=== PATIENT | male | born 1955 | race Caucasian/White ===

== ENCOUNTER 2019-06-26 06:39 | Day surgery (SDC) | payer MEDICARE, BC, SELFPAY ==
[2019-06-24 13:40] VITALS: BMI 26.4
--- NOTE | 2019-06-24 15:08 | RAD_ITS ---
STUDY: X-RAY CHEST REASON FOR EXAM: Male, 64 years old. Chest discomfort and shortness of breath upon exertion. TECHNIQUE: PA and lateral views of the chest. COMPARISON: None. FINDINGS: Component of COPD. There is no demonstrated pleural abnormality. Normal size heart. Normal mediastinum and isabella. Normal visualized pulmonary arteries. Normal visualized aortic arch and descending thoracic aorta. There are diffuse degenerative changes of the visualized thoracic spine. Normal visualized ribs, clavicles, and shoulders. There is no demonstrated abnormality of the visualized soft tissue structures of the upper abdomen. RAD/Chest PA and Lateral IMPRESSION: Hyperinflation likely post obstruction. No pulmonary edema, congestive heart failure or confluent pneumonia. Electronically Signed: Regine Brannon MD at 6:32 EDT , Service support ,
[2019-06-24 16:29] LABS: Hematocrit 44.1 % (40-54); Hemoglobin 14.9 g/dL (13.0-16.5); Mean Corp Hgb Conc 33.8 g/dL (32-36); Mean Corpuscular Hgb 30.2 pg (27.0-32.0); Mean Corpuscular Volume 89.3 fL (80-94); Mean Platelet Vol. 10.1 fl (6.2-12.0); Platelet Count 251 K/mm3 (150-450); RBC Distribution Width CV 12.4 % (11.6-14.6); RBC Distribution Width SD 40.6 fl (35.1-43.9); Red Blood Count 4.94 M/mm3 (4.6-6.2); White Blood Count 8.7 K/mm3 (4.4-11.0)
[2019-06-24 16:39] LABS: Prothrombin Time (Protime)PT. 13.4 SECONDS (11.7-14.9)
[2019-06-24 16:40] LABS: Partial Thromboplast Time 27.4 Seconds (24.1-36.2)
[2019-06-24 16:50] LABS: Anion Gap 7 (5-15); BUN 24 mg/dL (7-18); BUN/Creat Ratio 23.5 RATIO (10-20); Calcium,Total 8.6 mg/dL (8.5-10.1); Chloride 110 mmol/L (98-107); Creatinine, Serum 1.02 mg/dL (0.70-1.30); EST Glomerular Filtration Rate 78 mL/min (>60); Est Glom Filt Rate - Afr Amer 94 mL/min (>60); Glucose 88 mg/dL (74-106); Potassium 4.1 mmol/L (3.5-5.1); Sodium Level 144 mmol/L (136-145)
[2019-06-26] VITALS (26 sets, daily range): BP systolic 129–158; BP diastolic 73–87; PULSE 46–83; RESP 12–22; TEMP 36.6–36.8; O2SAT 98–100; BMI 26.2
[2019-06-26 08:46] LABS: ACT Activated Clotting Time 169 sec (74-137)
--- NOTE | 2019-06-26 08:54 | CL.I_ITS ---
Patient Name: SALOME CALDWELL Study Date: 06/26/2019 Performing: Chandler Mitchell MD Ht: 70.07 inches 178 cm : 1955 Wt: 182.98 lbs 83 kg Age: 64 Gender: male BSA: 2.01 PROCEDURE(S) PERFORMED HV40-BIS/COR/LV WX40-EPW W OR WO PTCA, SINGLE CORONARY ARTERY CLINICAL PROFILE AND CO-MORBIDITIES Indications: New Onset Angina <= 2 months, Worsening Angina, Suspected CAD Heart Failure: None Stress/Imaging Date: 06/17/2019 Angina Classification Anginal Classification w/in 2 Weeks: CCS III CAD Presentations: Unstable angina. Comorbidities/Risk Factors: Hypertension Dyslipidemia Family History of Premature CAD CONCLUSIONS Normal LV size, wall motion,and systolic function Perserved Left Ventricular systolic function with normal EDP Single vessel CAD of the RCA Normal Left Ventricular End Diastolic Pressure Successful PTCA/MACKENZIE proximal RCA with a 4.0 x 20 Promus Synergy, post dilated with a 4.0 x 8 NC Ballo on at 12-14 ti; 85%-->0%, no dissection. RECOMMENDATIONS Highly recommend quitting all tobacco products Follow up with primary socket welder helper Risk factor modification ASA Indefinitley Plavix for at least 12 months Routine post interventional care Refer for Outpatient Cardiac Rehab Manual sheath removal per protocol Follow up with Dr. Mitchell Manual sheath removal as pt is too thin for Mynx closure. DESCRIPTION OF PROCEDURE The patient arrived to the procedure lab. The risks and benefits of the procedure as well as a full d escription of our services here and lack of surgical backup were fully explained to the patient and/o r their significant other prior to the catheterization. The Timeout was completed, verifying the zuri ect patient and procedure. The patient's procedural site was prepped and draped in the usual fashion. Local anesthetic was given subcutaneously to right groin region with Lidocaine 2%. Using a modified Seldinger technique, arterial access was obtained via the right femoral artery, a 4Fr sheath was inse rted. Left Coronary Artery selective angiography was performed in multiple views using a 4 Fr. JL5 c atheter. Right Coronary Artery selective angiography was then performed in multiple views using a 4 F r. 3DRC catheter. Left Ventriculography was performed in SPICER projection using a 4 Fr. Pigtail cathete r. LV to AO pullback pressures were then recordedThe images were reviewed and options discussed. A decision was then made to proceed with an Intervention, IVUS or other adjunct procedure. Arterial sheath was exchanged for a 6 Fr Sheath. HS 2 Guide catheter was inserted and engaged int o the RCA. BMW Guide wire was advanced to the rPDA. 2 x 12 Emerge Balloon catheter was inserted. Ball oon catheter was advanced across lesion in the right coronary,prox. Angiogram performed pre balloon d ilatation. PTCA balloon inflated at 10 atms for 10 secs. Angiogram performed post balloon dilatation. 4.0 x 20 Synergy Drug Eluting stent was advanced across the lesion in the right coronary, proximal. Angiogram performed pre stent deployment. Angiogram performed post stent deployment. 4.0 x 8 NC Emerg e Balloon catheter was inserted post stent. Angiogram performed post balloon dilatation. The arteri al sheath was pulled and manual compression applied until hemostasis is achieved. CORONARY ANGIOGRAPHY DOMINANCE: Right Dominant LEFT HEART ASSESSMENT Left Ventricular Ejection Fraction: by LV Gram 60. % Normal Left Ventricular systolic function LVEDP: 11 mmHg Normal LV wall motion LEFT MAIN: Angiographically normal LEFT ANTERIOR DESCENDING ARTERY: MID LAD: Mild luminal irregularities less than 30% DIAGONAL 1: Proximal - Mild luminal irregularities less than 30% CIRCUMFLEX ARTERY: Angiographically normal RIGHT CORONARY ARTERY: PROX RCA: 85 % Stenosis RT PDA: Proximal - Angiographically normal INTERVENTION INFORMATION LESION SITE: RCA (Proximal) Lesion Complexity: High/C, lesion at bifurcation: No, thrombus present: No, lesion length: 20 mm, cul prit lesion: Yes Pre Stenosis: 85 % Pre intervention FELIPA flow: 3 PROCEDURE: Drug Eluting Stent with pre and post dilatation Post Stenosis: 0 % Post intervention FELIPA flow: 3 Lesion Devices: Crystalsoltronic 6 Fr HSII 100cm Guide Catheter Anaya .014 BMW Holmes Straight 190cm Sathish Sci EMERGE MR 2.00x12 BALLOON Sathish Sci Synergy MR MACKENZIE 4.00x20 Sathish Sci NC EMERGE MR 4.00x08 BALLOON COMPLICATIONS No Complications PROCEDURE MEDICATIONS Oxygen: 2 L/min via nasal cannula Heparin 6000 unit(s) IV 06/26/2019 08:16:37 Nitro 200 mcg IC 06/26/2019 08:19:44 Nitro 200 mcg IC 06/26/2019 08:19:44 Nitro 200 mcg IC 06/26/2019 08:25:21 IV Fluids: .9 NaCl increased to WO ml/hr 06/26/2019 08:19:57 SUMMARY OF HEMODYNAMIC DATA Time AIR REST ECG 07:08:07 AO 126/63 (88) SA 08:09:21 LV 124/-14, 11 08:14:55 LV 132/-15, 13 08:15:01 LVp 128/-16, 10 08:15:05 AOp 124/58 (84) 08:15:10 Signed By Chandler Mitchell MD On 06/26/2019 08:53:44 Chandler Mitchell MD
[2019-06-26] MEDS: 0.9% Normal Saline 1,000 ML 150 ML IV (09:16)
--- NOTE | 2019-06-26 09:59 | HP.PCM_ITS ---
Problem List (1) Chest pain Status: Acute (2) Abnormal stress ECG with treadmill Status: Acute (3) Hyperlipidemia Status: Chronic History and Physical Date of Admission: 06/26/19 [facility] [address] [place] [address] OFFICE VISIT Date of Service: 06/24/19 MR#: [id number] Acct: [id number] Name: SALOME SHIN Rep #: [id number] : 1955 Provider: Chandler osei MD Age/Sex: 64/M Location: [facility] [place].[facility] Status: Signed HPI HPI History of Present Illness Surgical H&P: Yes Details: Mr. Shin is a very pleasant 64-year-old nondiabetic non-smoking gentleman, no previous known coronary artery disease, positive family history of coronary disease in his mother in her late 60s, and his father who underwent PCI x3 in his 80s. Patient himself is never been told he had coronary artery disease or undergone a catheterization. Patient was in normal health up until around April 2019 when he began developing exertional chest pain symptoms which occurred on a regular basis with exertion and then resolved with rest. This lasted for several days, and then improved for about 2 to 3 weeks time. His chest pain then returned, which she described as a burning sensation went to the middle part of his chest, described as a 5 out of 10 in severity, improved with rest. He had no associated nausea, vomiting, diaphoresis. Patient was treated with PPI for appendectomy which had minimal improvement. Finally on 06/17/2019 he underwent a treadmill stress test without imaging at [facility] at which time he went 13.4 METS, and appropriate blood pressure response to exercise, developed PACs, PVCs and chest burning with exercise as well as 1 mm of horizontal downsloping ST depression in inferolateral leads which persisted until 5 minutes 50 seconds into recovery. Patient has been treated with baby aspirin and PPI therapy. He is on no beta- blockers. Patient still has his gallbladder. In our office today's blood pressure is 140/80, and pulse is 76 and regular. His physical exam demonstrates clear lungs bilaterally, regular rate and rhythm, normal S1/S2, no S3 or S4, no murmurs are detected. He has no edema. Lipids are pending. EKG dated 06/12/2019 shows sinus bradycardia, normal axis, normal intervals, no evidence of previous myocardial infarction. Intake Vital Signs 06/24/19 Height 5 ft 10 in 06/24/19 Weight: 184 lb 06/24/19 Body Mass Index (BMI) 26.4 06/24/19 Blood Pressure 140/80 H 06/24/19 Blood Pressure Location Lt brachial 06/24/19 Respiratory Rate 20 H 06/24/19 Pulse Rate 76 06/24/19 Pulse Source Auscultation Intake Visit Reasons: ABN STRESS (NITHIN) Marketing Outreach Coordinator Required: No Accompanied by: Is patient in pain?: No Allergies No Known Allergies Allergy (Verified 06/24/19 13:43) Medications cholecalciferol (vitamin D3) 400 unit capsule 400 unit PO DAILY 06/18/19 [History Confirmed 06/24/19] lactobacillus combination no.9 4 billion cell capsule 4,000 mmu cells PO DAILY 06/18/19 [History Confirmed 06/24/19] multivitamin tablet 1 tab PO DAILY 06/18/19 [History Confirmed 06/24/19] omega-3 fatty acids 1,000 mg capsule 1,000 mg PO DAILY 06/18/19 [History Confirmed 06/24/19] omeprazole magnesium 20 mg tablet,delayed release 20 mg PO DAILY 06/18/19 [History Confirmed 06/24/19] saw palm 160 mg-vit E 100 unit-selen 100 bxu-fndt-ofcsmw-pygeum tablet tab PO tab 06/18/19 [History Confirmed 06/24/19] aspirin 81 mg tablet,delayed release 81 mg PO DAILY tab 06/24/19 [History Confirmed 06/24/19] clopidogrel 75 mg tablet 75 mg PO .COMPLEX #30 tab 06/24/19 [Rx Confirmed 06/24/19] PFSH Medical History Chest pain (Acute) Abnormal stress ECG with treadmill (Acute) Hyperlipidemia (Chronic) Surgical History History of colonoscopy (Chronic 03/23/08) Family History Mother Diabetes Hypertension Father CAD (coronary artery disease) Diabetes Hypertension Social History (Updated 06/24/19 @ 14:24 by Chandler Mitchell MD) Smoking Status: Never smoker ROS Const Const: Positive for other (Referred by Dr. Nithin calvert cp. CP since middle april.); negative for fatigue, weakness, body ache, fever(s), headache(s), chills, frequent falls, night sweats, daytime sleepiness, difficulty sleeping, excessive sweating, weight gain, weight loss, increased appetite, poor appetite or anorexia Eyes Eyes: Negative for blind spots, loss of peripheral vision, transient loss of vision, blurry vision, change in vision, double vision, floaters, tunnel vision or other ENT ENT: Negative for headache(s), dizziness, hearing loss, tinnitus, Nosebleed/epistaxis, balance problems, post nasal drip, lip swelling, tongue swelling, bleeding gums, hoarseness, neck pain, dry mouth or other Cardio Chest Pain: Yes (Midsternal and higher.) Frequency: daily (with exertion) Character: dull (dull burning sensation, thought was indigestion at first.) Onset: exercise Location: mid sternal Duration: minutes Exacerbation: exercise, activity Relieving: rest Recurrence: exercise, activity Palpitations: No Edema: None Muscle aches with walking: None Resp Respiratory: Negative for SOB with activity, SOB at rest, SOB orthopnea\SOB lying down, Cough, Coughing up blood/hemoptysis, chest congestion, pain on inspiration, snoring, stridor, wheezing, crackles, paroxysmal nocturnal dyspnea or other GI GI: Negative nausea, vomiting, heartburn, constipation, belching, bloating, cramping, vomiting blood/hematemesis, bright, red blood in stools, black,tarry stools, loose stools, Difficulty Swallowing or other : Negative for hematuria, frequent nighttime urination/ nocturia, erectile d ysfunction or abnormal vaginal bleeding Musc Musc: Negative for muscle aches/ myalgia, muscle weakness, joint pain or balance problems Skin Skin: Negative redness, non-healing lesions, rash, unusual bruising, skin ulcer, wounds, jaundice or other Neuro Neuro: Negative for dizziness, lightheadedness, near syncope, syncope, o rthostatic symptoms, frequent falls, headache(s), weakness, confusion, memory loss, restless legs, blurry vision, double vision, vertigo, seizures, lack of coordination or other Mainor Hematologic/Lymphatic: Negative for easy bleeding, easy bruising, enlarged lymph nodes or other Endo Endo: Negative for fatigue, cold intolerance, heat intolerance, excessive sweating, flushing, increased thirst/drinking, increased hunger, hair loss, hair growth or other Psych Psych: Negative for anxiety, depression, thoughts of harming anyone, thoughts of harming yourself, visual hallucinations, panic attacks or audible hallucinations Allergy Allergy/Immunology: Negative for throat swelling, Negative for tongue swelling, Negative for hives, Negative for rash, Negative for lip swelling Cardiology Exam Const Appearance: cooperative, healthy appearing and no acute distress Nutritional Appearance: well nourished Orientation: alert, oriented x3 and oriented to person Head Head: normal to inspection, normocephalic and atraumatic Nose: external nose normal Face and Sinus: face symmetric Mouth: oral mucosae normal Eyes General: appearance normal, both eyes and all related structures Eyelids: eyelids normal Conjunctivae: conjunctivae normal Pupils: PERRL and normal by confrontation EOM: EOM intact bilaterally Neck Neck: normal visual inspection and full ROM Carotids: normal carotid upstroke Chest Chest inspection: normal inspection of the chest Auscultation: Bilateral: Clear to Auscultation Cardio Palpation: normal PMI Rate: regular rate Rhythm: regular rhythm Heart sounds: S1 normal and S2 normal GI GI: normal to inspection, no hepatosplenomegaly and bowel sounds present Neuro General: alert, awake, oriented x3, CN's II-XI intact bilaterally and moves all extremities Skin Skin: no rashes or lesions noted Extremities Pulses: Normal: Right Femoral Pulse, Left Femoral Pulse, Right Dorsalis Pedis Pulse, Left Dorsalis Pedis Pulse, Right Posterior Tibial Pulse, Left Posterior Tibial Pulse, Right Radial Pulse, Left Radial Pulse Lower Extremity Edema: None: Bilateral Psych Psychological: normal affect Assessment & Plan 1. Chest pain R07.9 Plan 1. Chest pain: The patient reportedly has new onset chest pain starting as far back as April 2019, with associated chest pain symptoms described as a burning sensation with exertion and resolves with rest. He underwent a treadmill EKG without imaging with an excellent workload however developed chest burning, and diffuse inferolateral ST segment depression which persisted for 5 minutes 50 seconds into recovery. Given the patient's risk factors, abnormal stress test, exertional chest pain, I recommended he undergo a diagnostic left heart catheterization. In the meantime he will continue baby aspirin to be loaded with Plavix 300 mg x 1 now followed by 75 mg a day. The risks/benefits of the procedure were thoroughly explained to the patient and his including specific attention to lack of on-site surgical back-up, and the patient is agreed to proceed. If the patient's coronary arteries show no significant disease we will discontinue his Plavix. Orders Orders: Left Heart Cath Today Basic Metabolic Profile (BMP) Today Partial Thromboplast Time Today Prothrombin Time w/INR Today CBC-Complete Blood Cnt No Diff Today Chest PA and Lateral Today 2. Hyperlipidemia E78.5 Plan 2. Hyperlipidemia: Recommend obtaining a vascular profile. If he has any coronary disease would recommend aggressive LDL reduction with statin based medicines to drive his LDL less than 70. 3. Return to office in 6 months. This note was generated using a voice recognition system and there may be incorrect words, spelling or punctuation that were not noted when reviewing the office note prior to saving. Plan Detail Other Orders Orders: Left Heart Cath Today R94.39 Basic Metabolic Profile (BMP) Today R94.39 Partial Thromboplast Time Today R94.39 Prothrombin Time w/INR Today R94.39 CBC-Complete Blood Cnt No Diff Today R94.39 Chest PA and Lateral Today R94.39 Lipid Profile 2 Days E78.00 Liver Profile 2 Days E78.00 Other Medications New: aspirin (Adult Aspirin Regimen) 81 mg PO DAILY clopidogrel (Plavix) 75 mg PO DAILY 30 tabs 3RF clopidogrel (Plavix) 75 mg PO 4 pills today (300mg) as loading dose, then 1 tablet daily for heart cath; 30 tabs 3RF Follow Up +6M (Stephen) Coding Level of Care Code Off vis,new,level 4 Diagnoses Chest pain R07.9 Hyperlipidemia E78.5 Coding Level of Care Code Off vis,new,level 4 Diagnoses Chest pain R07.9 Hyperlipidemia E78.5 06/24/19 1529 <Electronically signed by Chandler Mitchell MD> Date _ Chandler Mitchell MD Cosigner Signature: Date (if applicable) CC: Cleveland Garrison MD ~ Interventional attending addendum: Patient was seen and examined prior to his catheterization, and agree with above. No interim changes noted. Patient will proceed with left heart catheterization as planned.
--- NOTE | 2019-06-26 10:00 | EKG12_ITS ---
Test Reason : POST PCI Blood Pressure : / mmHG Vent. Rate : 046 BPM Atrial Rate : 046 BPM P-R Int : 190 ms QRS Dur : 082 ms QT Int : 468 ms P-R-T Axes : 070 041 052 degrees QTc Int : 409 ms Marked sinus bradycardia Abnormal ECG No previous ECGs available Confirmed by SVETLANA RECINOS, AMBAR ([id number]), order editor DIANNA DE GUZMAN ([id number]) on 06/30/2019 4:01:54 PM Referred By: Chandler Mitchell Confirmed By:ROSA MOTA MD
[2019-06-26] MEDS: Losartan Potassium 25 MG Tablet 12.5 MG PO (10:38)
--- NOTE | 2019-06-26 11:45 | CRPHASE1 ---
Patient Communication Former Patient:: Phase I PHII Cardiac Rehab Discussed with Patient:: Yes Guide to Cardiac Rehab Given to Patient:: Yes Cardiac Rehab Facility Choice List Given to Patient:: Yes Choice Program [facility] PHII:: Communication Given to CR, Refer to [facility] Choice Program Other:: Communication Given to CR, With permission faxed order and referral information Coin Machine Collector Supervisor:: Chandler Mitchell Phase II Cardiac Rehab:: Yes Sessions:: 36 sessions - 3 days/wk, 12 weeks Risk Factors/Lifestyle Smoking Status: Never smoker Hx Hypertension: No Hx Diabetes Mellitus Type 1: No Hx Diabetes Mellitus Type 2: No Hx Metabolic Disorders: No Hx Dyslipidemia: Yes Hx Obesity: No Height: 5 ft 10 in - BMI 26.3 Stress: Home/Family Risk Factor for Sedentary Lifestyle: Lowest Risk Family History: Family History (Last Reviewed 06/24/19 @ 13:34 by Dagmar Acosta) Mother Diabetes Hypertension Father CAD (coronary artery disease) Diabetes Hypertension Phase I Education Given On:: [place], Nutrition, Antiplatelet medication Issues Affecting Care:: None Knowledge of Condition:: Yes Learning Preferences: Verbal, Written - AT BEDSIDE Hospital Course Presenting Symptoms:: ABNORMAL STRESS TEST Medical/Surgical History AL:: No CAD:: No Cardiomyopathy:: No Pulmonary:: No COPD:: No MARLA:: No Diabetes:: No Hypertension:: No Dyslipidemia:: Yes Discharge/Home/Social Eval Discharge Disposition: Home Marital Status: Cardiac Rehabilitation Info Cardiac Rehabilitation Program Information: Cardiac Rehabilitation is important for patients like you who are recovering from a heart problem. Cardiac rehabilitation programs are recognized as integral to the continued care of the patient with coronary heart disease. The cardiac rehabilitation program is designed to optimize a patient's physical, psychological, and social functioning. Health health care marketing specialist work in cardiac rehabilitation programs and assist you with getting the treatments you need to get stronger and healthier - like exercise, healthy eating habits, and medications. Cardiac rehabilitation has been show to help people with heart problems live longer and have better life enjoyment than people who do not go to cardiac rehabilitation. Please contact the Cardiac Rehabilitation Program at [facility] at in two weeks if you have not heard from them.
--- NOTE | 2019-06-26 11:48 | CRPH1.INSTRU ---
General Education CAD and cardiac anatomy and function:: Patient communicates acknowledgment, Family communicates acknowledgment Explanation of diagnoses and procedures:: Patient communicates acknowledgment, Family communicates acknowledgment Sign/Symptoms of WA:: Patient communicates acknowledgment, Family communicates acknowledgment Antiplatelet therapy: Patient communicates acknowledgment, Family communicates acknowledgment Proper use of NTG-SL: Not instructed Emergency procedures and activation of EMS: Patient communicates acknowledgment, Family communicates acknowledgment Compliance of all prescribed medications: Patient communicates acknowledgment, Family communicates acknowledgment - AT BEDSIDE Smoking Patient Nicotine/Smoking Risk Factors Are:: Never smoked Dyslipidemia Recommendations Include:: Lipid profile not available, Reviewed NCEP/ATP guidelines, Therapeutic Lifestyle Change dietary guidelines Dyslipidemia Response Code:: Patient communicates acknowledgment, Family communicates acknowledgment Overweight/Obesity Patient Overweight/Obesity Risk Factors Are:: BMI Normal [24-29 & > 65 years old] Hypertension Patient Hypertension Risk Factors Are:: No documented hx of HTN Heart Disease Heart Disease Response Code:: Patient communicates acknowledgment Diabetes Patient Diabetes Risk Factors Are:: No documented hx of diabetes Metabolic Syndrome Recommendations Include:: Does not meet criteria Sedentary Recommendations Include:: Aerobic exercise 5-7 times/week for 20-30 minutes continuously, Benefits of regular exercise, Discussed home walking program, Monitored Outpatient Cardiac Rehab Sedentary Response Code:: Patient communicates acknowledgment, Family communicates acknowledgment Stress Recommendations Include:: Identification of stressors, and assessment of coping skills, Stress management techniques Stress Response Code:: Patient communicates acknowledgment
[2019-06-26] MEDS: Metoprolol Tartrate 25 MG Tablet 12.5 MG PO (21:05)
[2019-06-26] MEDS: Atorvastatin Calcium 80 MG Tablet PO (21:06)
[2019-06-27] VITALS (14 sets, daily range): BP systolic 110–134; BP diastolic 65–92; PULSE 55–83; RESP 13–23; TEMP 36.7–36.9; O2SAT 97–99
[2019-06-27 06:42] LABS: Hematocrit 44.3 % (40-54); Hemoglobin 15.3 g/dL (13.0-16.5); Mean Corp Hgb Conc 34.5 g/dL (32-36); Mean Corpuscular Hgb 30.8 pg (27.0-32.0); Mean Corpuscular Volume 89.3 fL (80-94); Mean Platelet Vol. 9.6 fl (6.2-12.0); Platelet Count 248 K/mm3 (150-450); RBC Distribution Width CV 12.4 % (11.6-14.6); RBC Distribution Width SD 40.6 fl (35.1-43.9); Red Blood Count 4.96 M/mm3 (4.6-6.2); White Blood Count 8.8 K/mm3 (4.4-11.0)
[2019-06-27 06:58] LABS: ALB/GLOB Ratio 0.9 RATIO (0.9-2.4); AST(SGOT) 26 U/L (15-37); Alanine Aminotransfer ALT/SGPT 25 U/L (16-61); Albumin, Serum 3.2 g/dL (3.2-5.0); Alkaline Phosphatase 77 U/L (45-117); Anion Gap 6 (5-15); BUN 14 mg/dL (7-18); BUN/Creat Ratio 14.8 RATIO (10-20); Calcium,Total 8.2 mg/dL (8.5-10.1); Chloride 110 mmol/L (98-107); Cholesterol 193 mg/dL (200); Creatinine, Serum 0.94 mg/dL (0.70-1.30); EST Glomerular Filtration Rate 85 mL/min (>60); Est Glom Filt Rate - Afr Amer 103 mL/min (>60); Estimated Creatinine Clearance 79.82 ml/min; Globulin 3.6 g/dL (2.2-4.2); Glucose 105 mg/dL (74-106); High Density Lipoprotein 27 mg/dL; Potassium 3.8 mmol/L (3.5-5.1); Protein, Total 6.8 g/dL (6.4-8.2); Sodium Level 142 mmol/L (136-145); Triglycerides 151 mg/dL; Very Low Density Lipoprotein 30 mg/dL (5-40)
[2019-06-27] MEDS: Aspirin E.C. 81 MG Tablet PO (08:02)
[2019-06-27] MEDS: Multivitamins,Therapeutic Tablet 1 TABLET PO (08:02)
[2019-06-27] MEDS: Losartan Potassium 25 MG Tablet 12.5 MG PO (08:03)
[2019-06-27] MEDS: Pantoprazole Sodium 20 MG Tablet PO (08:03)
[2019-06-27] MEDS: Metoprolol Tartrate 25 MG Tablet 12.5 MG PO (08:03)
[2019-06-27] MEDS: Clopidogrel Bisulfate 75 MG Tablet PO (08:04)
--- NOTE | 2019-06-27 08:30 | PCM.DC.CCA ---
Discharge Diet: Low fat/ Low Cholesterol Discharge Activity: Return to Normal Activity May shower in (days): 1 - No tub baths for 5 days May resume sexual activity in: 1-2 weeks Lifting Restrictions: Do not lift anything greater than 10 pounds for 3 days Call your doctor if your incision/area has: Continuous Slow Oozing, Sudden Increased Bleeding, Increased Pain/ Swelling, Increased Redness, Foul Smelling Discharge, Swelling at the incision site Call your doctor if you observe: Fever of 101 or Higher, Shortness of breath, Chest pain Remove Dressing in (days):: 1 Cleanse incision/area with: Soap & Water Additional Instructions: You will continue with Aspirin and Plavix therapy. If anyone asks you to stop your Plavix therapy, please call the [facility] Office at [phone] first. You are scheduled for an office appointment with Dr. Mitchell on 07/24/2019 at 9 AM. If you have any questions or concerns please call the [facility] office. A prescription for 3 new medication has been sent. These medications include Lipitor, Losartan, and Metoprolol. These medications are to help manage heart disease. Please monitor heart rate and blood pressure and contact our office if any concerns. Allergies/Adverse Reactions: Allergies No Known Allergies Allergy (Verified 06/24/19 13:43) Medications to take at Discharge cholecalciferol (vitamin D3) 400 unit capsule 400 unit PO DAILY 06/18/19 lactobacillus combination no.9 4 billion cell capsule 4,000 mmu cells PO DAILY 06/18/19 multivitamin tablet 1 tab PO DAILY 06/18/19 omega-3 fatty acids 1,000 mg capsule 1,000 mg PO DAILY 06/18/19 omeprazole magnesium 20 mg tablet,delayed release 20 mg PO DAILY 06/18/19 saw palm 160 mg-vit E 100 unit-selen 100 wfi-emeg-dlordt-pygeum tablet 1 tab PO QODAY tab 06/18/19 aspirin 81 mg tablet,delayed release 81 mg PO DAILY tab 06/24/19 Atorvastatin Calcium [Lipitor] 80 mg PO QHS #90 tab 06/27/19 Clopidogrel Bisulfate [Plavix] 75 mg PO DAILY #90 tab 06/27/19 Losartan Potassium [Cozaar] 12.5 mg PO DAILY #45 tab 06/27/19 Metoprolol Tartrate [Lopressor (beta agusto)] 12.5 mg PO BID #45 tab 06/27/19 The following prescriptions were given: Losartan Potassium [Cozaar] 12.5 mg PO DAILY #45 tab Transmission Status: Pending to [facility] Atorvastatin Calcium [Lipitor] 80 mg PO QHS #90 tab Transmission Status: Pending to [facility] Metoprolol Tartrate [Lopressor (beta agusto)] 12.5 mg PO BID #45 tab Transmission Status: Pending to [facility] Clopidogrel Bisulfate [Plavix] 75 mg PO DAILY #90 tab Transmission Status: Pending to [facility] Orders to be completed after discharge: Phase II, Outpatient Cardiac Rehab Location: None Selected Primary Care Physician: Cleveland Garrison MD [Primary Care Provider] - Test Results: Test results from this visit will be discussed in further detail at your follow-up appointment, if applicable. Please Follow Up With: Dr. Mitchell When: 07/24/2019 at 9:00 AM Proposed Discharge Date: 06/27/19 Cardiac Rehabilitation Info Cardiac Rehabilitation Program Information: Cardiac Rehabilitation is important for patients like you who are recovering from a heart problem. Cardiac rehabilitation programs are recognized as integral to the continued care of the patient with coronary heart disease. The cardiac rehabilitation program is designed to optimize a patient's physical, psychological, and social functioning. Health rn progressive care work in cardiac rehabilitation programs and assist you with getting the treatments you need to get stronger and healthier - like exercise, healthy eating habits, and medications. Cardiac rehabilitation has been show to help people with heart problems live longer and have better life enjoyment than people who do not go to cardiac rehabilitation. Please contact the Cardiac Rehabilitation Program at [facility] at in two weeks if you have not heard from them.
--- NOTE | 2019-06-27 10:00 | EKG12_ITS ---
Test Reason : AM EKG Blood Pressure : / mmHG Vent. Rate : 057 BPM Atrial Rate : 057 BPM P-R Int : 172 ms QRS Dur : 078 ms QT Int : 434 ms P-R-T Axes : 145 002 144 degrees QTc Int : 422 ms Unusual P axis, possible ectopic atrial bradycardia Low voltage QRS Nonspecific T wave abnormality Abnormal ECG When compared with ECG of 26-JUN-2019 09:13, MANUAL COMPARISON REQUIRED, DATA IS UNCONFIRMED Confirmed by SVETLANA RECINOS, AMBAR ([id number]), film or videotape editor DIANNA DE GUZMAN ([id number]) on 06/30/2019 4:02:09 PM Referred By: Chandler Mitchell Confirmed By:ROSA MOTA MD
== END 2019-06-27 11:00 | disposition home or self-care (01) ==
LOC: CLSP 06:40 → ICU 08:44
PROVIDERS: Family Provider Family Medicine; PCP Family Medicine; Referring Provider Internal Medicine Cardiovascular Disease; Visit Provider Internal Medicine Cardiovascular Disease
DX: I25.10 Atherosclerotic heart disease of native coronary artery without angina pectoris (principal); E78.5 Hyperlipidemia, unspecified; I10 Essential (primary) hypertension; Z82.49 Family history of ischemic heart disease and other diseases of the circulatory system; Z79.82 Long term (current) use of aspirin; Z79.899 Other long term (current) drug therapy; R07.9 Chest pain, unspecified
CPT/HCPCS: 36415; 71046; 80048; 80053; 80061; 85027; 85347; 85610; 85730; 92928; 93005; 93458; J7030; J7040; Q9967; C1725; C1769; C1874; C1887; C1894; C9600

== ENCOUNTER → 2019-07-08 08:54 | Outpatient (CLI) | payer MEDICARE, BC, SELFPAY ==
[2019-06-26 09:17] VITALS: BMI 26.2
--- NOTE | 2019-07-08 09:33 | PCM.CR.HP2 ---
CR - History & Physical - General Arrival date:: 07/08/19 Arrival time:: 09:00 Date of Referral:: 06/26/19 Date of CR Evaluation:: 07/08/19 Referring Physician: MIKE Primary Diagnosis: PCI WITH STENT - History of Present Cardiac Event Onset Date: Enter Onset Date of cardiac illnesses in Comment field below Current stable Angina Pectoris:: No Acute Myocardial Infarction within 12 months:: No Coronary Artery Bypass Graft:: No Heart valve replacement or repair:: No PTCA or coronary stenting:: Yes Heart or Heart-Lung Transplant:: No Heart Failure EF <35%:: No - NOT AVAILABLE AT THIS TIME Type of Symptoms:: INDIGESTION Interventions with present event:: PCI WITH STENT - Medications Home Medications: Ambulatory Orders Medication Instructions Recorded cholecalciferol (vitamin D3) 400 400 unit PO DAILY 06/18/19 unit capsule lactobacillus combination no.9 4 4,000 mmu cells PO DAILY 06/18/19 billion cell capsule multivitamin tablet 1 tab PO DAILY 06/18/19 omega-3 fatty acids 1,000 mg 1,000 mg PO DAILY 06/18/19 capsule omeprazole magnesium 20 mg 20 mg PO DAILY 06/18/19 tablet,delayed release saw palm 160 mg-vit E 100 1 tab PO QODAY tab 06/18/19 unit-selen 100 ude-bloy-vzacoy-pygeum tablet aspirin 81 mg tablet,delayed 81 mg PO DAILY tab 06/24/19 release Atorvastatin Calcium [Lipitor] 80 mg PO QHS #90 tab 06/27/19 Clopidogrel Bisulfate [Plavix] 75 mg PO DAILY #90 tab 06/27/19 Losartan Potassium [Cozaar] 12.5 mg PO DAILY #45 tab 06/27/19 metoprolol tartrate 25 mg tablet 12.5 mg PO BID #90 tab 06/27/19 - Allergies Allergies/Adverse Reactions: Allergies No Known Allergies Allergy (Verified 06/24/19 13:43) - Sleep Disorder Evaluation Hx of Sleep Apnea: No Do you snore loudly (louder than talking or can be heard through closed doors)?: No Do you often feel tired/ fatigued/ sleepy during daytime?: No Has anyone observed you stop breathing during sleep?: No History of Hypertension (for STOP score): No STOP Results: Negative Advanced Directives - Advanced Directives Power of Emissions Testing And Repair Technician: No Living Will: No Advance Directives Information Provided: No Advance Directives on File: No - INFORMED OF PAPERS AVAIL IN MED RECORDS Past Medical History - Past Medical Illness Medical History: Past Medical History (Last Updated 06/26/19 @ 17:28 by Dagamr Acosta) Atherosclerosis of coronary artery of [place] heart without angina pectoris (Chronic) I25.10 Successful PTCA/MACKENZIE proximal RCA with a 4.0 x 20 Promus Synergy, Chest pain (Resolved) R07.9 Hyperlipidemia (Chronic) E78.5 Abnormal stress ECG with treadmill (Resolved) R94.39 - Past Surgical History Surgical History: Past Surgical History (Last Updated 06/26/19 @ 17:28 by Dagmar Acosta) Stented coronary artery (Chronic) Onset Date: 06/26/19 Z95.5 Successful PTCA/MACKENZIE proximal RCA with a 4.0 x 20 Promus Synergy, per [facility] @ [facility] 06/26/2019 History of colonoscopy Onset Date: 03/23/08 Z98.890 - Family History Summary Family History: Family History (Last Reviewed 06/24/19 @ 13:34 by Dagmar Acosta) Mother Diabetes Hypertension Father CAD (coronary artery disease) Diabetes Hypertension Social History - Smoking History Smoking Status: Never smoker - Alcohol Use Alcohol Usage: Yes - OCCASIONAL - Substance Abuse Hx Substance Use: No - Occupation Occupation (List type of work in comments):: Retired - Hobbies, Recreation, Social Activities Hobbies: Other - WORK [place] Recreational Activities: I am able to engage in all my recreational activities Social Environment - Status Marital Status: - Current Living Arrangements Living Environment:: Spouse - Children How many children do you have?: 3 Do any of your children live nearby?: Yes - Safety Do you feel safe in your surroundings?: Yes - Assistance Do you need any assistance at home?: NONE Review of Systems - Review of Systems Hints: Right click = Denies ([place]ash). Left click = Reports ([place]) Review of Present Symptoms: Reports: Fatigue - I TAKE MY AFTERNOON NAP, Appetite - Normal - REGULAR APPETITE. 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 - Pain Is Patient Pain Free?: Yes Risk Factor Assessment - Chief Complaint Chief Complaint: CURRENT PCI PT WHO PRESENTS TODAY FOR CR FOR INTIAL EVALUATION - Vital Signs Temperature: 98.6 F Respiratory Rate: 12 Pulse Ox: 98 Blood Pressure: 90/66 Nailbeds:: PINK - Pulse Pulse Rate: 61 Pulse Rhythm: Regular - Blood Cholesterol/Lipids Total Cholesterol (mg/dL) Goal = less than 200 mg/dL: 150 HDL Cholesterol (mg/dL) Goal = less than 40 mg/dL: 27 LDL Cholesterol (mg/dL) Goal = less than 70 mg/dL: 136 Triglycerides (mg/dL) Goal = less than 150 mg/dL: 151 - Diabetes Nutrition Referral for Diabetes: No - Obesity Height: 5 ft 10 in Weight:: 184 lb Weight in Pounds: 184.0 lbs Weight Source: Stated by Patient Body Mass Index (BMI): 26.4 Nutritional Referral for Obesity: No - Physical Inactivity Physical Inactivity: Reg Exercise 30 min/day - Risk Stratification Risk Guidelines: Lowest Risk: Risk Factor for Smoking, Risk Factor for Diabetes, Risk Factor for Obesity, Risk Factor for Hypertension, Risk Factor for Sedentary Lifestyle, Risk Factor for Depression, Moderate Risk: Risk Factor for Dyslipidemia - For Smoking Smoking Risk Guidelines: Smoking Low Risk: None or quit greater than 6 months ago. Smoking Moderate Risk: Smoker or quit 6 months or less ago. Smoking High Risk: Smoker - For Dyslipidemia Dyslipidemia Risk Guidelines: Low Risk: Moderate Risk: High Risk: 15-25% fat 25.1-29% fat >/= 30% fat. <7% sat fat 7-9% sat fat >9% sat fat. <150 mg chol 150-299 mg chol >/= 300 mg chol. LDL <100 LDL 100-129 LDL >/= 130. Chol/HDL ratio <5.0 Chol/HDL ratio 5.0-6.0 Chol/HDL ratio >6.0. Triglycerides <100 Triglycerides 100-149 Triglycerides >/= 150 - For Diabetes Mellitus Diabetes Risk Guidelines: Diabetes Low Risk: HgA1c <6.5% and/or FBG <120. Diabetes Moderate Risk: HgA1c 6.6-7.9% and/or FBG 120-180. Diabetes High Risk: HgA1c >/= 8% and/or FBG >180 - For Obesity/Overweight Obesity/Overweight Risk Guidelines: Obesity Low Risk: BMI <25.0. Obesity Moderate Risk: BMI 25-29.9. Obesity High Risk: BMI >/= 30.0 - For Hypertension Hypertension Risk Guidelines: Hypertension Low Risk: Systolic <120 and Diastolic <80. Hypertension Moderate Risk: Systolic 120-139 and Diastolic 80-89. Hypertension High Risk: Systolic >/= 140 and Diastolic >/= 90 - For Sedentary Lifestyle Sedentary Lifestyle Risk Guidelines: Sedentary Lifestyle Low Risk: >/= 1,500 kcal/week. Sedentary Lifestyle Moderate Risk: 700-1,499 kcal/week. Sedentary Lifestyle High Risk: < 700 kcal/week - For Depression Depression Risk Guidelines: Depression Low Risk: Not clinically depressed. Depression Moderate Risk: Mildly depressed. Depression High Risk: Clinically depressed - Family History Family History: Family History (Last Reviewed 06/24/19 @ 13:34 by Dagmar Acosta) Mother Diabetes Hypertension Father CAD (coronary artery disease) Diabetes Hypertension Motivation - Motivation to Participate On a scale of 1 to 10, how prepared are you to commit to attending program?: 10 What do you see as barriers to successfully being able to complete the program?: NONE What do you see as the benefits of succesfully completing the program? In other words, what do you hope to get out of participating in the program?: EDUCATION Are there issues you are dealing with that will interfere with completing the program?: NONE Do you have a spouse or signficant other, family or friends who will help support you to complete the program?: SPOUSE
[2019-07-08 09:55] VITALS: BP 90/66; PULSE 61; RESP 12; TEMP 37; O2SAT 98; BMI 26.4
--- NOTE | 2019-07-08 10:08 | PCM.CR.ITP ---
General Information - General Information Admitting Diagnosis: PTCA, PCI W/CORONARY STENT PLACEMENT - Education/Goals Barriers to Learning: Vision Impairment Individual Counseling: Initial Assessment: Abnormal Cholesterol Levels, High Blood Pressure Cardiac Rehabilitation Goals: 1. Maintain the individual as the primary focus of care. 2. To improve the patient's quality of life. 3. Identification of cardiac risk factors and provide cardiac risk factor management. 4. Enhance the psychosocial status of the patient. 5. Reconditioning enough to allow the patient to resume customary activities. 6. Control symptoms of cardiac disease Scale for measuring improvement of personal goals: Enter appropriate number in Comments. 2 = Unchanged. 3 = Slightly Better. 4 = Moderate Improvement. 5 = Met my Goal Personal Goals: Initial Assessment: Improve energy level, Participate in home exercise program, Improve knowledge of cardiac disease, Improve muscle strength and endurance, Improve diet and eating habits (eat healthier), Control risk factors (learn risk factor modification) Exercise - Initial Assessment - Visit Date of Eval: 07/08/19 Session #:: 0 - START CR ON 07/11/2019 - Stages of Change Stages of Change:: Action - Physician Prescribed Exercise Modalities: Treadmill, Rower, Airdyne, NuStep Frequency (days/week): 3x/week for 12 weeks [36 sessions] Duration (Minutes):: 30-45 Intensity: 60-80% age predicted maximum heart rate reserve METs - Progression: 0.5-1.0 MET, RPE 11-14 WEEK: 3.5 Target Heart Rate:: 100-130 - Hypertension Do any of the following apply?: Yes, Medication Resting Blood Pressure:: 140/80 - Intervention Home Exercise/Activity Goal:: Moderate Exercise 30 min/day x 5 days/wk - Education Goals:: Warm-up, RPE EVENS Scale, S/S, Safe Exercise, Self-Monitoring - Exercise Program Goals Exercise Program Goals: Aerobic Activity >30 min Nutrition - Initial Assessment - Program Goals Nutrition Program Goals: LDL <70. Total Cholesterol <200. HDL >45. Triglycerides <150. HgbA1C <7%. BMI <25 - Visit Date of Assessment:: 07/08/19 - Stages of Change Stages of Change:: Action - Lipids Total Cholesterol (mg/dL) Goal = less than 200 mg/dL: 150 - 06/27/2019 HDL Cholesterol (mg/dL) Goal = less than 45 mg/dL: 27 LDL Cholesterol (mg/dL) Goal = less than 70 mg/dL: 136 Triglycerides (mg/dL) Goal = less than 150 mg/dL: 151 - Diabetes Diabetes:: No Insulin: No Non-Insulin Dependent?: No Do you monitor your blood sugar at home?: No - Weight Management Height: 5 ft 10 in Weight:: 184 lb Body Fat %:: 26.4 - Intervention Referral to dietitian:: No Referral to Diabetic Clinic:: No Will attend diet classes:: Yes - Education Gave educational materials for:: Healthy eating Tobacco - Initial Assessment - Program Goals Tobacco Program Goals: Complete smoking cessation. Attend education classes. Improve Knowledge Test score - Stage of Change Stages of Change:: Action - Learning Barriers Learning Barriers: Vision, Ready to Learn - Family Support Do you have family support?: Yes - Tobacco Use Tobacco Use: Non-smoker Do you use smokeless tobacco?: No - Intervention Smoking Cessation Referral:: No Individual Education/Counseling:: No Education Schedule Given:: Yes - Education Attended class for:: Treating Heart Disease, How The Heart Works, What it means to have Heart Disease, How Coronary Artery Disease is Diagnosed, Heart Procedures, What Heart Medications Do, Risk Factors & Modifications, Living an Active Life, Nutrition, Emotions & Heart Disease, Stress Management & Relaxation, Sleep Disorders & Heart Disease Psychosocial - Initial Assess - Target Goals Target Goals: Assess presence or absence of depression. Using a valid screening tool, maximizes coping skills. Positive support system - Stages of Change Stages of Change:: Action - Psychosocial Test Tool Used:: HANDS Depression Questionnaire - Intervention PS - Interventions: Yes Attend Stress Management Classes, No Referral to Mental Health, No Referral to [facility] Case Management, No Referral to Physician, No Uses Stress Management Skills - Education Gave educational materials for:: Coping techniques, Signs & symptoms of depression, Stress management, Relaxation techniques - Patient/Program Goal Preventative Medication(s):: Aspirin, JAMIN inhibitor, Clopidogrel, Beta agusto, Statin/lipid - Assistive Devices Assistive Devices:: None Fall Risk Assessed:: Yes Patient Health Questionnaire Initial Assessment 1. Little interest or pleasure in doing things: Several days 2. Feeling down, depressed, or hopeless: Not at all 3. Trouble falling or staying asleep, or sleeping too much: Nearly every day 4. Feeling tired or having little energy: Not at all 5. Poor appetite or overeating: Not at all 6. Feeling bad about yourself -- or that you are a failure or have let yourself or your family down: Not at all 7. Trouble concentrating on things, such as reading the newspaper or watching television: Not at all 8. Moving or speaking so slowly that other people could have noticed. Or the opposite - being so fidgety or restless that you have been moving around a lot more than usual: Not at all 9. Thoughts that you would be better off , or of hurting yourself in some way: Not at all How difficult have these problems made it for you to do your work, take care of things at home, or get along with other people?: Not difficult at all Total Score: 4 SANGEETHA-Q SV Test - Statements CAD is a disease of the arteries in the heart: False Examples of risk factors for heart disease: True Angina is chest pain or discomfort: True The benefits of resistance training include: True Eating more meat and dairy products: False Anti-platelet medications such as aspirin are important: True The only effective way to manage stress: False An exercise warm-up slowly increases heart rate: True Prepared, processed foods usually have high sodium: True Depression is common after a heart attack: True The statin medications lower cholesterol: True To control blood pressure, lower the amount of sodium: True If someone gets chest discomfort during walking: False Transfats are partially hydrogenated vegetable oils: True Sleep apnea that is not treated increases the risk: False To control cholesterol, one should become a vegetarian: False Someone knows if he/she is exercising at the right level: True Diabetes cannot be prevented with exercise & health eating: False Stress is a large risk for heart attack: True A diet that can help lower blood pressure is rich in: True - Total Score Total Correct Responses: 20 Self-Efficacy Initial Assessment We would like to know how confident you are in doing certain activities. Please select your confidence level for:: Select your confidence level for the following using the scale 1-10 where 1 is not at all confident and 10 is totally confident. Your score is the average of all 6 responses. Fatigue: How confident are you that you can keep the fatigue caused by your disease from interfering with the things you want to do? Select Number: 8 Physical Discomfort or Pain: How confident are you that you can keep the physical discomfort or pain of your disease from interfering with the things you want to do? Select Number: 10 Emotional Distress: How confident are you that you can keep the emotional distress caused by your disease from interfering with the things you want to do? Select Number: 10 Other Symptoms or Health Problems: How confident are you that you can keep other symptoms or health problems from interfering with the things you want to do? Select Number: 10 Different Tasks and Activities: How confident are you that you can do the different tasks and activities needed to manage your health condition so as to reduce your need to see a doctor? Select Number: 10 Medication: How confident are you that you can do things other than just taking medication to reduce how much your illness affects your everyday life? Select Number: 10 Total Score:: 9 Nutrition Survey - Nutrition Survey Instructions Scoring Instructions: Scoring is as follows: Yes = 1 points. No = 0 point. Patient score that is >/=12 is considered to be at potential nutritional risk and could benefit from a referral to a registered dietitian. - Nutrition Survey Initial Have you lost >10 lbs over the past 2 months without trying?: No Are you following a special diet at home for diabetes, low fat, or low salt?: Yes Are you interested in meeting with a dietitian for help understanding your diet?: Yes Do you eat less than 3 meals a day?: No Do you eat fatty meats (yeager, sausage, ribs, etc), fried foods, desserts, large amounts of salad dressings, margarine, butter, or cheese most days?: No Do you have food allergies? [Enter types in comment field]: No Do you eat in restaurants more than 3 times a week?: No Do you season food with salt, seasoning salt, or garlic salt?: No Do you used canned, boxed, frozen meals, or soups, seasoning packets?: No Total Score:: 2
[2019-07-08 10:40] VITALS: BP 140/80
== END ==
PROVIDERS: Family Provider Family Medicine; PCP Family Medicine; Referring Provider Internal Medicine Cardiovascular Disease; Visit Provider Internal Medicine Cardiovascular Disease
DX: I25.10 Atherosclerotic heart disease of native coronary artery without angina pectoris (principal); E78.5 Hyperlipidemia, unspecified; Z95.5 Presence of coronary angioplasty implant and graft; Z79.82 Long term (current) use of aspirin; Z79.899 Other long term (current) drug therapy

== ENCOUNTER 2019-07-14 10:15 | Outpatient (RCR) | payer MEDICARE, BC, SELFPAY ==
[2019-07-08 09:55] VITALS: BMI 26.4
== END 2019-07-14 23:59 ==
LOC: CR 10:15
PROVIDERS: Family Provider Family Medicine; PCP Family Medicine; Referring Provider Internal Medicine Cardiovascular Disease; Visit Provider Internal Medicine Cardiovascular Disease
DX: I25.10 Atherosclerotic heart disease of native coronary artery without angina pectoris (principal); Z95.5 Presence of coronary angioplasty implant and graft
CPT/HCPCS: 93798

== ENCOUNTER → 2019-07-18 07:58 | Outpatient (CLI) | payer MEDICARE, BC, SELFPAY ==
[2019-07-08 09:55] VITALS: BMI 26.4
[2019-07-18 08:53] LABS: AST(SGOT) 18 U/L (15-37); Alanine Aminotransfer ALT/SGPT 33 U/L (16-61); Albumin, Serum 3.6 g/dL (3.2-5.0); Alkaline Phosphatase 84 U/L (45-117); Bilirubin, Direct 0.18 mg/dL (0.00-0.30); Cholesterol 82 mg/dL (200); Globulin 3.3 g/dL (2.2-4.2); High Density Lipoprotein 29 mg/dL; Protein, Total 6.9 g/dL (6.4-8.2); Triglycerides 86 mg/dL; Very Low Density Lipoprotein 17 mg/dL (5-40)
== END ==
PROVIDERS: Family Provider Family Medicine; PCP Family Medicine; Referring Provider Internal Medicine Cardiovascular Disease; Visit Provider Internal Medicine Cardiovascular Disease
DX: E78.00 Pure hypercholesterolemia, unspecified (principal)
CPT/HCPCS: 36415; 80061; 80076

== ENCOUNTER → 2019-08-08 10:06 | Outpatient (CLI) | payer MEDICARE, BC, SELFPAY ==
[2019-07-24 09:03] VITALS: BMI 25.9
[2019-08-08 10:26] LABS: Hematocrit 43.5 % (40-54); Hemoglobin 14.7 g/dL (13.0-16.5); Mean Corp Hgb Conc 33.8 g/dL (32-36); Mean Corpuscular Hgb 30.2 pg (27.0-32.0); Mean Corpuscular Volume 89.5 fL (80-94); Mean Platelet Vol. 9.4 fl (6.2-12.0); Platelet Count 218 K/mm3 (150-450); RBC Distribution Width CV 12.3 % (11.6-14.6); RBC Distribution Width SD 40.1 fl (35.1-43.9); Red Blood Count 4.86 M/mm3 (4.6-6.2)
== END ==
PROVIDERS: Physician Assistant Medical; Family Provider Family Medicine; PCP Family Medicine; Referring Provider Internal Medicine Cardiovascular Disease; Visit Provider Internal Medicine Cardiovascular Disease
DX: T14.8XXA Other injury of unspecified body region, initial encounter (principal); I25.10 Atherosclerotic heart disease of native coronary artery without angina pectoris; Z95.5 Presence of coronary angioplasty implant and graft
CPT/HCPCS: 36415; 85027; 93798

== ENCOUNTER 2019-08-13 09:15 | Outpatient (RCR) | payer MEDICARE, BC, SELFPAY ==
[2019-07-08 09:55] VITALS: BMI 26.4
--- NOTE | 2019-08-04 13:46 | CR.ITP_ITS ---
General Information - General Information Admitting Diagnosis: PCI with stent - Education/Goals Barriers to Learning: None Cardiac Rehabilitation Goals: 1. Maintain the individual as the primary focus of care. 2. To improve the patient's quality of life. 3. Identification of cardiac risk factors and provide cardiac risk factor management. 4. Enhance the psychosocial status of the patient. 5. Reconditioning enough to allow the patient to resume customary activities. 6. Control symptoms of cardiac disease Scale for measuring improvement of personal goals: Enter appropriate number in Comments. 2 = Unchanged. 3 = Slightly Better. 4 = Moderate Improvement. 5 = Met my Goal Exercise - 30-day Assessment - Visit Date of Eval: 08/04/19 Session #:: 11 - Stages of Change Stages of Change:: Action - Physician Prescribed Exercise Modalities: Treadmill, Rower, Airdyne Frequency (days/week): 3 Duration (Minutes):: 30-45 Intensity: 60-80% age predicted maximum heart rate reserve METs - Progression: 0.5-1.0 MET, RPE 11-14 WEEK: 6 Target Heart Rate:: 100-130 Max HR 119 - Hypertension Resting Blood Pressure:: 102/62 Peak Exercise Blood Pressure:: 160/70 - Intervention Home Exercise/Activity Goal:: Sitting Time <3 hrs/day - Education Goals:: Warm-up, RPE EVENS Scale, S/S, Safe Exercise, Self-Monitoring - Exercise Program Goals Exercise Program Goals: Aerobic Activity >30 min, B/P <130/80 Nutrition - Initial Assessment - Program Goals Nutrition Program Goals: LDL <70. Total Cholesterol <200. HDL >45. Triglycerides <150. HgbA1C <7%. BMI <25 - Diabetes Do you monitor your blood sugar at home?: No Nutrition - 30-Day Assessment - Program Goals Nutrition Program Goals: LDL <70. Total Cholesterol <200. HDL >45. Triglycerides <150. HgbA1C <7%. BMI <25 - Visit Date of Eval: 08/04/19 - Stages of Change Stages of Change:: Action - Lipids Has the patient seen the dietitian?: No - Diabetes Diabetes:: No - Weight Management Weight:: 81.647 kg - Intervention Referral to dietitian:: No Referral to Diabetic Clinic:: No Will attend diet classes:: Yes - Education Attended class for:: Signs & symptoms of hypoglycemia, Signs & symptoms of hyperglycemia, Relate diabetes to coronary artery disease, Healthy eating Tobacco - Initial Assessment - Program Goals Tobacco Program Goals: Complete smoking cessation. Attend education classes. Improve Knowledge Test score - Learning Barriers Learning Barriers: Vision, Ready to Learn Tobacco - 30-Day Assessment - Program Goals Tobacco Program Goals: Complete smoking cessation. Attend education classes. Improve Knowledge Test score - Stage of Change Stages of Change:: Action - Learning Barriers Learning Barriers: Participates in education - Family Support Do you have family support?: Yes - Tobacco Use Tobacco Use: Non-smoker Do you use smokeless tobacco?: No - Intervention Smoking Cessation Referral:: No Individual Education/Counseling:: No Education Schedule Given:: Yes - Education Attended class for:: Treating Heart Disease, How The Heart Works, What it means to have Heart Disease, How Coronary Artery Disease is Diagnosed, Heart Procedures, What Heart Medications Do, Risk Factors & Modifications, Living an A ctive Life, Nutrition, Emotions & Heart Disease, Stress Management & Relaxation, Sleep Disorders & Heart Disease Psychosocial - Initial Assess - Target Goals Target Goals: Assess presence or absence of depression. Using a valid screening tool, maximizes coping skills. Positive support system - Psychosocial Test Tool Used:: HANDS Depression Questionnaire - Assistive Devices Fall Risk Assessed:: Yes Psychosocial - 30-Day Assess - Target Goals Target Goals: Assess presence or absence of depression. Using a valid screening tool, maximizes coping skills. Positive support system - Stages of Change Stages of Change:: Action - Psychosocial Test Tool Used:: HANDS Depression Questionnaire - Intervention PS - Interventions: Yes Attend Stress Management Classes, Yes Uses Stress Management Skills, No Referral to Mental Health, No Referral to [facility] Case Management, No Referral to Physician - Education Attended classes for:: Coping techniques, Signs & symptoms of depression, Stress management, Relaxation techniques - Assistive Devices Assistive Devices:: None Fall Risk Assessed:: Yes Patient Health Questionnaire 30-Day Re-eval Assessment 1. Little interest or pleasure in doing things: Several days 2. Feeling down, depressed, or hopeless: Not at all 3. Trouble falling or staying asleep, or sleeping too much: Nearly every day 4. Feeling tired or having little energy: Not at all 5. Poor appetite or overeating: Not at all 7. Trouble concentrating on things, such as reading the newspaper or watching television: Not at all 8. Moving or speaking so slowly that other people could have noticed. Or the opposite - being so fidgety or restless that you have been moving around a lot more than usual: Not at all 9. Thoughts that you would be better off , or of hurting yourself in some way: Not at all How difficult have these problems made it for you to do your work, take care of things at home, or get along with other people?: Not difficult at all Total Score: 4 Self-Efficacy 30-Day Re-eval Assessment We would like to know how confident you are in doing certain activities. Please select your confidence level for:: Select your confidence level for the following using the scale 1-10 where 1 is not at all confident and 10 is totally confident. Your score is the average of all 6 responses. Fatigue: How confident are you that you can keep the fatigue caused by your disease from interfering with the things you want to do? Select Number: 8 Physical Discomfort or Pain: How confident are you that you can keep the physical discomfort or pain of your disease from interfering with the things you want to do? Select Number: 10 Emotional Distress: How confident are you that you can keep the emotional distress caused by your disease from interfering with the things you want to do? Select Number: 10 Other Symptoms or Health Problems: How confident are you that you can keep other symptoms or health problems from interfering with the things you want to do? Select Number: 10 Different Tasks and Activities: How confident are you that you can do the different tasks and activities needed to manage your health condition so as to reduce your need to see a doctor? Select Number: 10 Medication: How confident are you that you can do things other than just taking medication to reduce how much your illness affects your everyday life? Select Number: 10 Total Score:: 9
[2019-08-04 13:51] VITALS: BP 102/62; BP 160/70
== END 2019-08-14 23:59 ==
LOC: CR 09:15
PROVIDERS: Family Provider Family Medicine; PCP Family Medicine; Referring Provider Internal Medicine Cardiovascular Disease; Visit Provider Internal Medicine Cardiovascular Disease
DX: Z95.5 Presence of coronary angioplasty implant and graft (principal); I25.10 Atherosclerotic heart disease of native coronary artery without angina pectoris
CPT/HCPCS: 93798

== ENCOUNTER 2019-09-10 09:15 | Outpatient (RCR) | payer MEDICARE, BC, SELFPAY ==
[2019-07-24 09:03] VITALS: BMI 25.9
[2019-08-15 01:16] VITALS: BP 102/62; BP 160/70
== END 2019-09-13 23:59 ==
LOC: CR 09:15
PROVIDERS: Family Provider Family Medicine; PCP Family Medicine; Referring Provider Internal Medicine Cardiovascular Disease; Visit Provider Internal Medicine Cardiovascular Disease
DX: Z95.5 Presence of coronary angioplasty implant and graft (principal); I25.10 Atherosclerotic heart disease of native coronary artery without angina pectoris
CPT/HCPCS: 93798

== ENCOUNTER 2019-10-10 09:15 | Outpatient (RCR) | payer MEDICARE, BC, SELFPAY ==
[2019-07-24 09:03] VITALS: BMI 25.9
[2019-09-14 00:56] VITALS: BP 102/62; BP 160/70
== END 2019-10-14 23:59 ==
LOC: CR 09:15
PROVIDERS: Family Provider Family Medicine; PCP Family Medicine; Referring Provider Internal Medicine Cardiovascular Disease; Visit Provider Internal Medicine Cardiovascular Disease
DX: Z95.5 Presence of coronary angioplasty implant and graft (principal); I25.10 Atherosclerotic heart disease of native coronary artery without angina pectoris
CPT/HCPCS: 93798

== ENCOUNTER → 2021-04-06 08:41 | Outpatient (CLI) | payer MEDICARE, BC, SELFPAY ==
[2020-01-08 09:13] VITALS: BMI 25.2
[2021-04-06 09:36] LABS: AST(SGOT) 16 U/L (15-37); Alanine Aminotransfer ALT/SGPT 28 U/L (16-61); Albumin, Serum 3.6 g/dL (3.2-5.0); Alkaline Phosphatase 81 U/L (45-117); Bilirubin, Direct 0.25 mg/dL (0.00-0.30); Cholesterol 110 mg/dL (200); Globulin 3.2 g/dL (2.2-4.2); High Density Lipoprotein 38 mg/dL; Protein, Total 6.8 g/dL (6.4-8.2); Triglycerides 106 mg/dL; Very Low Density Lipoprotein 21 mg/dL (5-40)
== END ==
PROVIDERS: PCP Family Medicine; Referring Provider Internal Medicine Cardiovascular Disease; Visit Provider Internal Medicine Cardiovascular Disease
DX: E78.5 Hyperlipidemia, unspecified (principal); I25.10 Atherosclerotic heart disease of native coronary artery without angina pectoris
CPT/HCPCS: 36415; 80061; 80076

== ENCOUNTER → 2021-10-05 08:17 | Outpatient (CLI) | payer MEDICARE, BC, SELFPAY ==
[2021-10-05 09:40] LABS: AST(SGOT) 15 U/L (15-37); Alanine Aminotransfer ALT/SGPT 30 U/L (16-61); Albumin, Serum 3.5 g/dL (3.2-5.0); Alkaline Phosphatase 75 U/L (45-117); Bilirubin, Direct 0.18 mg/dL (0.00-0.30); Cholesterol 89 mg/dL (200); Globulin 3.3 g/dL (2.2-4.2); High Density Lipoprotein 35 mg/dL; Protein, Total 6.8 g/dL (6.4-8.2); Triglycerides 101 mg/dL; Very Low Density Lipoprotein 20 mg/dL (5-40)
== END ==
PROVIDERS: PCP Family Medicine; Referring Provider Internal Medicine Cardiovascular Disease; Visit Provider Internal Medicine Cardiovascular Disease
DX: E78.5 Hyperlipidemia, unspecified (principal); E78.00 Pure hypercholesterolemia, unspecified
CPT/HCPCS: 36415; 80061; 80076

== ENCOUNTER → 2022-03-27 | Outpatient (CLI) | payer MEDICARE, BC, SELFPAY ==
[2022-03-27 11:14] LABS: AST(SGOT) 21 U/L (15-37); Alanine Aminotransfer ALT/SGPT 33 U/L (16-61); Albumin, Serum 3.6 g/dL (3.2-5.0); Alkaline Phosphatase 82 U/L (45-117); Bilirubin, Direct 0.18 mg/dL (0.00-0.30); Cholesterol 98 mg/dL (200); Globulin 3.6 g/dL (2.2-4.2); High Density Lipoprotein 33 mg/dL; Protein, Total 7.2 g/dL (6.4-8.2); Triglycerides 111 mg/dL; Very Low Density Lipoprotein 22 mg/dL (5-40)
[2022-03-27 12:43] LABS: Absolute Lymphocyte Count 1.56 X10^3/uL (0.83-4.51); Absolute Neutrophil Count 5.2 X10^3/uL (2.0-7.7); Basophil# 0.04 X10^3/uL; Basophil% 0.5 % (0-1); Eosinophil# 0.22 X10^3/uL; Eosinophils% 2.9 % (0-5); Hematocrit 46.2 % (40-54); Hemoglobin 15.7 g/dL (13.0-16.5); Lymphocyte # 1.56 X10^3/ul (0.83-4.51); Lymphocyte % 20.3 % (19-41); Mean Corpuscular Hgb 30.6 pg (27.0-32.0); Mean Corpuscular Volume 90.1 fL (80-94); Mean Platelet Vol. 9.6 fl (6.2-12.0); Monocyte# 0.64 X10^3/uL; Monocyte% 8.3 % (0-10); NRBC Flagged by Analyzer 0 % (0-5); Neutrophil % 67.6 % (47-70); Platelet Count 261 K/mm3 (150-450); RBC Distribution Width CV 12.3 % (11.6-14.6); RBC Distribution Width SD 41.1 fl (35.1-43.9); Red Blood Count 5.13 M/mm3 (4.6-6.2); White Blood Count 7.7 K/mm3 (4.4-11.0)
== END | disposition home or self-care (01) ==
PROVIDERS: Physician Assistant Medical; PCP Family Medicine; Referring Provider Internal Medicine Cardiovascular Disease; Visit Provider Internal Medicine Cardiovascular Disease
DX: R07.9 Chest pain, unspecified (principal); E78.00 Pure hypercholesterolemia, unspecified; E78.5 Hyperlipidemia, unspecified
CPT/HCPCS: 36415; 80061; 80076; 85025

== ENCOUNTER → 2022-04-06 | Outpatient (CLI) | payer MEDICARE, BC, SELFPAY ==
--- NOTE | 2022-04-06 09:41 | STRESSREP ---
Stress Test Report Date: 04-06-2022 Procedure: Exercise tolerance test/imaging study Indications: Chest pain; CAD; PCI Consent: Per the patient Procedure: The patient exercised on a Sandeep protocol for 9 minutes completing Stage III achieving a peak heart rate of 134 bpm (88% predicted maximal heart rate) with a peak blood pressure 156/60 mmHg and a peak MET capacity of 10 METs. The baseline ECG demonstrated sinus bradycardia. The peak exercise ECG demonstrated no obvious ECG changes. There were no cardiac dysrhythmias pretest, during exercise, or recovery. The functional capacity was considered good. There was no complaint of chest discomfort during exercise or recovery. The examination was discontinued secondary to dyspnea. Impression: 1. Technically adequate (percent predicted maximal heart rate greater than 85%) exercise tolerance test 2. Peak exercise ECG 3. There were no cardiac dysrhythmias pretest, during exercise, or recovery 4. Nuclear images pending Myocardial perfusion imaging study: Technique: The patient was injected with 11.4 mCi of technetium 99m Cardiolite and subsequently rest SPECT Cardiolite nuclear imaging was obtained in the horizontal long, vertical long, and short axis views. The patient exercised on a Sandeep protocol for 9 minutes completing Stage III achieving a peak heart rate of 134 bpm (88% predicted maximal heart rate) with a peak blood pressure 156/6 mmHg and a peak MET capacity of 10 METs. The patient was injected with 33.3 mCi of technetium 99m Cardiolite and subsequently stress SPECT Cardiolite nuclear imaging was obtained in the horizontal long, vertical long, and short axis views. A gated Cardiolite study at peak stress was obtained. Interpretation: Rest and stress SPECT Cardiolite nuclear imaging status post realignment, normalization, and attenuation correction, demonstrates the appearance of relative uniform tracer uptake and myocardial perfusion appearing within normal limits. There is end systolic thickening and brightening. The gated Cardiolite study demonstrates myocardial thickening and inward wall motion. The reported LVEF is 62%. Impression: 1. Rest and stress SPECT Cardiolite nuclear imaging demonstrate relative uniform tracer uptake and myocardial perfusion appearing within normal limits. 2. The gated Cardiolite study reports an LVEF of 62%. This note was generated with [employer] software. It may contain incorrect words, spelling, and punctuation that were not noted in checking the note before signing.
== END | disposition home or self-care (01) ==
LOC: CVS 06:30
PROVIDERS: PCP Family Medicine; Referring Provider Physician Assistant Medical; Visit Provider Physician Assistant Medical
DX: R07.9 Chest pain, unspecified (principal)
CPT/HCPCS: 78452; 93017; A9500; A4216